=== PATIENT | female | born 1985 | race Caucasian/White ===

== ENCOUNTER 2020-04-11 09:53 | Outpatient (CLI) | payer BC | END 2020-04-11 20:01 | disposition home or self-care (01) | LOC: SRD 09:53 | PROVIDERS: ATTEND Specialist | DX: N94.6 Dysmenorrhea, unspecified (principal) | CPT/HCPCS: 58340; 74740; C1751; Q9967 ==

== ENCOUNTER 2020-05-31 07:52 | Day surgery (SDC) | payer BC, SELFPAY ==
[~2020-05-31] VITALS: Ht 157.5 cm; Wt 79.4 kg
[2020-05-31] MEDS ORDERED: SEVOFLURANE 15 MIN GAS INH ONE (10:31)
[2020-05-31] MEDS ORDERED: DEXAMETHASONE SOD PHOSPHATE 4 MG/ML VIAL IVP ONE (10:31)
[2020-05-31] MEDS ORDERED: KETOROLAC TROMETHAMINE 30 MG VIAL IVP ONE (10:31)
[2020-05-31] MEDS ORDERED: CEFAZOLIN 1 GM IVPB PREMIX 50 ML IV ONE (10:31)
[2020-05-31] MEDS ORDERED: MIDAZOLAM HCL 5 MG/5 ML VIAL IVP ONE (10:31)
[2020-05-31] MEDS ORDERED: ONDANSETRON HCL 4 MG/2 ML VIAL IVP ONE (10:31)
[2020-05-31] MEDS ORDERED: OXYTOCIN/0.9 % SODIUM CHLORIDE 20 UNITS/1,000 ML BAG IV ONE (10:31)
[2020-05-31] MEDS ORDERED: FUROSEMIDE 20 MG/2 ML VIAL IVP ONE (10:31)
[2020-05-31] MEDS ORDERED: IOPAMIDOL-M 300, 15 ML VIAL IT ONE (10:31)
[2020-05-31] MEDS ORDERED: PROPOFOL 200MG/ 20ML VIAL (DIPRIVAN) IV ONE (10:31)
[2020-05-31] MEDS ORDERED: NS IRRIG SOLN 1000 ML IR ONE (10:31)
[2020-05-31] MEDS ORDERED: fentaNYL CITRATE/PF 100 MCG/2 ML AMP IVP ONE (10:31)
[2020-05-31] MEDS ORDERED: HYDROmorphone 1 MG INJ. 1 MG/ML CARTRIDGE IVP PRN (11:15)
[2020-05-31] MEDS ORDERED: ONDANSETRON HCL 4 MG/2 ML VIAL IVP PRN ×2 (11:15→11:45)
[2020-05-31] MEDS ORDERED: HYDROcodone/ACETAMIN 5-325 MG TAB (NORCO/ VICODIN) PO PRN (11:45)
[2020-05-31] MEDS ORDERED: OXYCODONE/ACETAMINOPHEN 5-325 TABLET PO PRN ×2 (11:45)
[2020-05-31 13:38] VITALS: BP_SYST 112
== END 2020-05-31 14:15 | disposition home or self-care (01) ==
LOC: SMU 07:52 → SDS 07:52
PROVIDERS: ATTEND Specialist
DX: N92.6 Irregular menstruation, unspecified (principal)
CPT/HCPCS: 58340; 58558; 74740; 76000; 88305; C1819; J0690; J1100; J1885; J1940; J2250; J2405; J2590; J2704; J3010; Q9967 ×2; U0003

== ENCOUNTER 2020-10-02 10:10 | Outpatient (CLI) | payer BC | END 2020-10-02 20:32 | disposition home or self-care (01) | LOC: SRD 10:10 | PROVIDERS: ATTEND Specialist | DX: N92.0 Excessive and frequent menstruation with regular cycle (principal); N73.6 Female pelvic peritoneal adhesions (postinfective) | CPT/HCPCS: 58340; 74740; C1751; Q9967 ==